=== PATIENT | male | born 1935 | race Asian ===

== ENCOUNTER → 2021-03-22 | Outpatient (CLI) | payer MEDICARE, MEDICAID | LOC: COL.RAD 10:01 | DX: Z20.1 Contact with and (suspected) exposure to tuberculosis (principal) ==

== ENCOUNTER → 2021-04-06 | Outpatient (CLI) | payer MEDICARE, MEDICAID ==
[2021-04-06 14:37] LABS: BASO # 0.1 (0.0-0.2); BASO % 0.7 % (0.0-2.0); EOS # 0.5 (0.0-0.7); EOS % 7.2 % (0-4.0); GRAN # 4.9 (1.4-6.5); HEMATOCRIT 43.1 % (42.0-52.0); HEMOGLOBIN 13.5 g/dl (13.5-18.0); LYMPH # 0.9 (1.2-3.4); LYMPH % 13.3 % (20.0-51.0); MEAN CELL VOLUME 91 fl (80.0-100.0); MEAN CORPUSCULAR HEMOGLOBIN 28 pg (27.0-31.0); MEAN CORPUSCULAR HGB CONC 31 g/dl (33.0-37.0); MEAN PLATELET VOLUME 10.3 fl (7.4-10.4); MONO # 0.7 (0.1-0.6); MONO % 9.4 % (1.7-9.3); PLATELET COUNT 180 K/mm3 (130-400); RED BLOOD COUNT 4.76 M/mm3 (4.20-5.60); REDCELL DISTRIBUTION WIDTH-CV 12.8 % (11.5-14.5)
[2021-04-06 15:23] LABS: BILIRUBIN,TOTAL 0.2 mg/dL (0.0-1.0); CALCIUM 9.8 mg/dL (8.4-10.2); CREATININE, serum 0.78 (0.66-1.25); TOTAL PROTEIN 7.2 gm/dL (6.4-8.2)
[2021-04-06 15:46] LABS: TSH w REFLEX 1.31 uIU/mL (0.465-4.680)
== END ==
LOC: ZCOL.LAB 13:26
PROVIDERS: Internal Medicine
DX: D64.9 Anemia, unspecified (principal); E03.9 Hypothyroidism, unspecified; E11.9 Type 2 diabetes mellitus without complications

== ENCOUNTER → 2021-11-16 | Outpatient (CLI) | payer MEDICARE, MEDICAID | LOC: ZCOL.LAB 10:17 | DX: R50.9 Fever, unspecified (principal); R05.9 Cough, unspecified; Z20.822 Contact with and (suspected) exposure to COVID-19 ==

== ENCOUNTER → 2022-03-17 | Outpatient (CLI) | payer MEDICARE, MEDICAID ==
[2022-03-17 15:34] LABS: ALBUMIN 3.8 gm/dL (3.4-4.8); BASO # 0.1 K/mm3 (0.0-0.2); BASO % 1.1 % (0.0-2.0); BILIRUBIN,TOTAL 0.5 mg/dL (0.2-1.2); CALCIUM 9.4 mg/dL (8.4-10.2); CREATININE, serum 0.89 mg/dL (0.72-1.25); EOS # 0.3 K/mm3 (0.0-0.7); EOS % 5.9 % (0.0-4.0); GRAN # 3.3 K/mm3 (1.4-6.5); GRAN % 62.5 % (42.2-75.2); HEMATOCRIT 43.1 % (42.0-52.0); HEMOGLOBIN 13.4 g/dl (13.5-18.0); MEAN CELL VOLUME 94 fl (80.0-100.0); MEAN CORPUSCULAR HEMOGLOBIN 29 pg (27-31); MEAN CORPUSCULAR HGB CONC 31 g/dl (33.0-37.0); MEAN PLATELET VOLUME 9.6 fl (7.4-10.4); MONO # 0.6 K/mm3 (0.1-0.6); MONO % 11.3 % (1.7-9.3); PLATELET COUNT 200 K/mm3 (130-400); POTASSIUM 3.7 mmol/L (3.5-4.5); REDCELL DISTRIBUTION WIDTH-CV 13.2 % (11.5-14.5); THYROID STIMULATING HORMONE 1.776 uIU/mL (0.350-4.940); TOTAL PROTEIN 7.2 gm/dL (6.2-8.1)
== END ==
LOC: ZCOL.LAB 08:30
PROVIDERS: Internal Medicine
DX: D64.9 Anemia, unspecified (principal); E03.9 Hypothyroidism, unspecified; E11.9 Type 2 diabetes mellitus without complications